=== PATIENT | female | born 1940 | race Caucasian/White ===

== ENCOUNTER 2021-10-12 10:46 | Emergency (ER) | payer MEDICARE ==
[~2021-10-12] VITALS: Ht 167.6 cm; Wt 72.6 kg
[2021-10-12] MEDS ORDERED: ATOR20TA PO (11:08)
[2021-10-12] MEDS ORDERED: LISI10TA29 PO (11:08)
[2021-10-12] MEDS ORDERED: MULT-1168 PO (11:14)
[2021-10-12] MEDS ORDERED: LORAZEPAM 2 MG/1 ML VIAL IV ONE (11:15)
[2021-10-12] MEDS ORDERED: BIFI10.5 PO (11:15)
[2021-10-12] MEDS ORDERED: IV NORMAL SALINE 250 ML BAG IV ONE (11:15)
[2021-10-12] MEDS ORDERED: ATEN25TA PO (11:16)
--- NOTE | 2021-10-12 11:17 | NUR ---
PT IS IN ROOM #2B. DR GABRIEL EVALUATED THE PT.
[2021-10-12] MEDS ORDERED: LORAZEPAM 2 MG/1 ML VIAL ONE (11:42)
[2021-10-12 12:14] LABS: HEMATOCRIT 43.1 % (31.2-41.9); MEAN CORPUSCULAR HEMOGLOBIN 30.8 uug (24.7-32.8); MEAN CORPUSCULAR VOLUME 90.7 fL (75.5-95.3); PLATELET COUNT (AUTO) 178 K/uL (179-408)
[2021-10-12 12:21] LABS: CARBON DIOXIDE 27 mmol/L (21-32); CHLORIDE 105 mmol/L (98-107); CREATININE 0.8 mg/dL (0.6-1.3); GLUCOSE 110 mg/dL (74-106); POTASSIUM 4.3 mmol/L (3.5-5.1); UREA NITROGEN, BLOOD 25 mg/dL (7-18)
[2021-10-12 12:34] LABS: ALANINE AMINOTRANSFERASE 14 U/L (14-59); ALKALINE PHOSPHATASE 63 U/L (50-136); ASPARTATE AMINOTRANSFERASE 9 U/L (15-37); BILIRUBIN,DIRECT 0.1 mg/dL (0.0-0.2); BILIRUBIN,TOTAL 0.4 mg/dL (0.2-1.0); TOTAL PROTEIN, SERUM 6.5 g/dL (6.4-8.2)
[2021-10-12] MEDS ORDERED: LORA0.5T48 PO (14:05)
--- NOTE | 2021-10-12 14:38 | NUR ---
PT WAS D/C'd TO HOME. D/C INSTRUCTIONS GIVEN TO THE PT BY DR GABRIEL.
[2021-10-12 14:39] VITALS: BP 146/78
== END 2021-10-12 14:40 | disposition home or self-care (01) ==
LOC: ER 10:46
DX: F41.0 Panic disorder [episodic paroxysmal anxiety] (principal); R53.1 Weakness; Z82.49 Family history of ischemic heart disease and other diseases of the circulatory system; E03.9 Hypothyroidism, unspecified; R03.0 Elevated blood-pressure reading, without diagnosis of hypertension; Z88.2 Allergy status to sulfonamides; Z79.899 Other long term (current) drug therapy
CPT/HCPCS: 36415; 70450; 71045; 80048; 80076; 83880; 84443; 84484; 85025; 93005; 96361; 96374; 99285; J2060; A4663; J7040

== ENCOUNTER 2023-07-22 11:02 | Inpatient (IN) | payer MEDICARE, BC ==
[~2023-07-22] VITALS: Ht 167.6 cm; Wt 80.3 kg
[~2023-07-22 11:02] MED LIST: ATEN25TA PO; ATOR20TA PO; BIFI10.5 PO; LISI10TA29 PO; LORA0.5T48 PO; MULT-1168 PO
[2023-07-22] MEDS ORDERED: METO-356 PO (11:33)
[2023-07-22] MEDS ORDERED: SERT100T PO (11:33)
[2023-07-22] MEDS ORDERED: LEVO100T PO (11:33)
[2023-07-22] MEDS ORDERED: GABA-532 PO (11:33)
[2023-07-22 11:52] LABS: BASOPHILS # (AUTO) 0.3 K/UL (0.0-0.2); BASOPHILS % (AUTO) 4.1 % (0.0-2.0); EOSINOPHILS # (AUTO) 0.1 K/uL (0.0-0.7); EOSINOPHILS % (AUTO) 0.9 % (0.0-7.0); HEMATOCRIT 44.8 % (31.2-41.9); HEMOGLOBIN 14.8 g/dL (10.9-14.3); LYMPHOCYTES # (AUTO) 0.7 K/uL (0.8-4.8); LYMPHOCYTES % (AUTO) 9.6 % (20.5-51.5); MEAN CORPUSCULAR HEMOGLOBIN 30.4 uug (24.7-32.8); MEAN CORPUSCULAR HGB CONC 33 g/dL (32.3-35.6); MEAN CORPUSCULAR VOLUME 92.1 fL (75.5-95.3); MONOCYTES # (AUTO) 0.5 K/uL (0.1-1.30); MONOCYTES % (AUTO) 6.3 % (0.0-11.0); NEUTROPHILS # (AUTO) 5.9 K/uL (1.8-8.9); NEUTROPHILS % (AUTO) 79.1 % (38.5-71.5); PLATELET COUNT (AUTO) 169 K/uL (179-408); RED BLOOD CELL COUNT(AUTO) 4.87 MIL/uL (3.63-4.92); RED CELL DISTRIBUTION WIDTH 13.9 % (12.3-17.7); WHITE BLOOD COUNT (AUTO) 7.4 K/uL (3.8-11.8)
[2023-07-22 12:43] LABS: ALANINE AMINOTRANSFERASE 17 U/L (14-59); ALBUMIN 3.5 g/dL (3.4-5.0); ALKALINE PHOSPHATASE 73 U/L (50-136); ASPARTATE AMINOTRANSFERASE 10 U/L (15-37); BILIRUBIN,DIRECT 0.1 mg/dL (0.0-0.2); BILIRUBIN,TOTAL 0.4 mg/dL (0.2-1.0); CALCIUM 9.1 mg/dL (8.5-10.1); CARBON DIOXIDE 23 mmol/L (21-32); CHLORIDE 104 mmol/L (98-107); CREATININE 0.8 mg/dL (0.6-1.3); GLUCOSE 104 mg/dL (74-106); MAGNESIUM 2.2 mg/dL (1.8-2.4); SODIUM SERUM 138 mmol/L (136-145); UREA NITROGEN, BLOOD 22 mg/dL (7-18)
[2023-07-22 13:16] LABS: *BILIRUBIN,URIN NEGATIVE (NEGATIVE); *BLOOD, URINE NEGATIVE (NEGATIVE); *CLARITY,URINE CLEAR (CLEAR); *COLOR,URINE YELLOW (YELLOW); *KETONES,URINE NEGATIVE (NEGATIVE); *PROTEIN,URINE NEGATIVE (NEGATIVE); *UROBILINOGEN,URINE 0.2 E.U./dl (NORMAL); LEUKOCYTE ESTERASE ,URINE NEGATIVE (NEGATIVE); NITRITE, URINE NEGATIVE (NEGATIVE); PH,URINE 7.5 (5.0-8.0); UGLUCOSE NEGATIVE (NEGATIVE)
[2023-07-22 13:18] LABS: DIFFERENTIAL COMMENT 1
[2023-07-22 14:25] LABS: THYROID STIMULATING HORMONE 4.003 mIU/mL (0.358-3.740)
[2023-07-22] MEDS ORDERED: LORAZEPAM 1 MG TABLET ONE (14:25)
[2023-07-22] MEDS ORDERED: diphenhydrAMINE 25 MG CAP PO ONE (14:25)
[2023-07-22] MEDS: LORAZEPAM 0.5 MG TABLET PO ONE (14:27)
[2023-07-22] MEDS: diphenhydrAMINE 25 MG CAP PO ONE (14:27)
[2023-07-22] MEDS: CYANOCOBALAMIN 1000 MCG/ML VIAL IM ONE (17:00)
[2023-07-22] MEDS ORDERED: CYANOCOBALAMIN 1000 MCG/ML VIAL ONE (17:45)
[2023-07-22] MEDS ORDERED: MAGNESIUM HYDROXIDE 30 ML LIQUID UDC PO PRN (18:30)
[2023-07-22] MEDS: BLOOD SUGAR DIAGNOSTIC 1 EACH STRIP VI ONE (18:30)
[2023-07-22] MEDS ORDERED: MAG HYDROX/AL HYDROX/SIMETH 30 ML LIQUID UDC PO PRN (18:30)
[2023-07-22 18:41] VITALS: BP 158/82; TEMP 98.7; O2SAT 99
[2023-07-22] MEDS: LORAZEPAM 1 MG TABLET PO PRN (21:17)
[2023-07-22] MEDS: LISINOPRIL 10 MG TABLET PO SCH (23:15)
[2023-07-22] MEDS: GABAPENTIN 100 MG CAPSULE PO SCH (23:35)
[2023-07-22] MEDS: METOPROLOL SUCCINATE XL 25 MG TAB.SR.24H PO SCH (23:36)
[2023-07-23] MEDS: LEVOTHYROXINE SODIUM 100 MCG TABLET PO SCH (06:27)
[2023-07-23 07:55] VITALS: BP 119/62; TEMP 98; O2SAT 98
[2023-07-23 08:15] LABS: ALANINE AMINOTRANSFERASE 19 U/L (14-59); ALBUMIN 2.9 g/dL (3.4-5.0); ALKALINE PHOSPHATASE 63 U/L (50-136); ASPARTATE AMINOTRANSFERASE 8 U/L (15-37); BILIRUBIN,TOTAL 0.5 mg/dL (0.2-1.0); CALCIUM 8.5 mg/dL (8.5-10.1); CARBON DIOXIDE 28 mmol/L (21-32); CHLORIDE 107 mmol/L (98-107); CREATININE 0.8 mg/dL (0.6-1.3); GLUCOSE 98 mg/dL (74-106); POTASSIUM 4.3 mmol/L (3.5-5.1); SODIUM SERUM 141 mmol/L (136-145); TOTAL PROTEIN, SERUM 6.1 g/dL (6.4-8.2); UREA NITROGEN, BLOOD 15 mg/dL (7-18)
[2023-07-23] MEDS: MULTIVIT, IRON, MIN NO. 8, FA TABLET PO SCH (08:33)
[2023-07-23] MEDS: PAROXETINE HCL 10 MG TABLET PO SCH (11:01)
[2023-07-23] MEDS: GABAPENTIN 100 MG CAPSULE PO SCH (12:36)
[2023-07-23 16:05] VITALS: BP 103/69; TEMP 98.1; O2SAT 98
[2023-07-23 20:00] VITALS: BP 110/53; TEMP 97.7; O2SAT 96
[2023-07-23] MEDS ORDERED: GABAPENTIN 100 MG CAPSULE PO SCH (21:00)
[2023-07-23] MEDS: ZOLPIDEM 5 MG TABLET PO PRN (21:05)
[2023-07-23] MEDS: ATORVASTATIN 20 MG TABLET PO SCH (21:05)
[2023-07-24 07:51] VITALS: BP 124/63; TEMP 97.5; O2SAT 98
[2023-07-24 16:03] VITALS: BP 143/81; TEMP 98; O2SAT 99
[2023-07-24 20:00] VITALS: BP 93/54; TEMP 98; O2SAT 97
[2023-07-25 07:51] VITALS: BP 142/68; TEMP 98.2; O2SAT 98
[2023-07-25] MEDS: PAROXETINE HCL 10 MG TABLET PO ONE (09:51)
[2023-07-25 15:15] VITALS: BP 107/63; TEMP 97.8; O2SAT 98
[2023-07-25 20:00] VITALS: BP 112/69; TEMP 98; O2SAT 94
[2023-07-26 07:57] VITALS: BP_SYST 150; BP_SYST 182; BP_DIAS 84; BP_DIAS 99; TEMP 98; O2SAT 98
[2023-07-26] MEDS: PAROXETINE HCL 20 MG TABLET PO SCH (09:08)
[2023-07-26 15:08] VITALS: BP 99/61; TEMP 98; O2SAT 98
[2023-07-26 20:02] VITALS: BP 136/78; TEMP 98.1; O2SAT 98
[2023-07-27] MEDS ORDERED: LORAZEPAM 1 MG TABLET PO PRN (08:15)
[2023-07-27 08:19] VITALS: BP 153/84; TEMP 98; O2SAT 98
[2023-07-27] MEDS: LORAZEPAM 0.5 MG TABLET PO PRN (10:36)
[2023-07-27 15:34] VITALS: BP 102/57; TEMP 97.6; O2SAT 98
[2023-07-27 19:57] VITALS: BP 104/56; TEMP 97.7; O2SAT 96
[2023-07-27] MEDS: MELATONIN 3 MG TABLET PO SCH (20:09)
[2023-07-28 08:44] VITALS: BP 119/62; TEMP 98.2; O2SAT 99
[2023-07-28] MEDS: ENSURE ENLIVE (VAN) 240 ML LIQUID PO SCH (08:54)
[2023-07-28] MEDS: LORAZEPAM 0.5 MG TABLET PO PRN (14:28)
[2023-07-28 15:33] VITALS: BP 119/62; TEMP 98.2; O2SAT 99
[2023-07-28] MEDS: LORAZEPAM 2 MG/1 ML VIAL IM ONE (17:06)
[2023-07-28 20:05] VITALS: BP 100/52; TEMP 97.9; O2SAT 96
[2023-07-29 07:43] VITALS: BP 138/68; TEMP 98.1; O2SAT 98
[2023-07-29 16:21] VITALS: BP 117/69; TEMP 98; O2SAT 98
[2023-07-29] MEDS: LORAZEPAM 1 MG TABLET PO PRN (19:58)
[2023-07-29 19:59] VITALS: BP 103/55; TEMP 97.5; O2SAT 98
[2023-07-30 07:35] VITALS: BP 154/67; TEMP 97.6; O2SAT 98
[2023-07-30] MEDS: ACETAMINOPHEN 325 MG TABLET PO PRN (10:06)
[2023-07-30 16:12] VITALS: BP 125/67; TEMP 98; O2SAT 98
[2023-07-30 19:44] VITALS: BP 100/55; TEMP 98.1; O2SAT 96
[2023-07-31 07:47] VITALS: BP 157/70; TEMP 98.1; O2SAT 97
[2023-07-31 08:45] LABS: BASOPHILS # (AUTO) 0.1 K/UL (0.0-0.2); EOSINOPHILS # (AUTO) 0.1 K/uL (0.0-0.7); EOSINOPHILS % (AUTO) 1.8 % (0.0-7.0); HEMATOCRIT 41.5 % (31.2-41.9); HEMOGLOBIN 13.9 g/dL (10.9-14.3); LYMPHOCYTES # (AUTO) 0.9 K/uL (0.8-4.8); LYMPHOCYTES % (AUTO) 12.7 % (20.5-51.5); MEAN CORPUSCULAR HEMOGLOBIN 30.4 uug (24.7-32.8); MEAN CORPUSCULAR HGB CONC 33 g/dL (32.3-35.6); MONOCYTES # (AUTO) 0.6 K/uL (0.1-1.30); MONOCYTES % (AUTO) 8.6 % (0.0-11.0); NEUTROPHILS # (AUTO) 5.5 K/uL (1.8-8.9); NEUTROPHILS % (AUTO) 75.9 % (38.5-71.5); PLATELET COUNT (AUTO) 155 K/uL (179-408); RED BLOOD CELL COUNT(AUTO) 4.56 MIL/uL (3.63-4.92); RED CELL DISTRIBUTION WIDTH 13.3 % (12.3-17.7); WHITE BLOOD COUNT (AUTO) 7.2 K/uL (3.8-11.8)
[2023-07-31 08:47] LABS: DIFFERENTIAL COMMENT 1
[2023-07-31] MEDS ORDERED: LORAZEPAM 1 MG TABLET PO PRN (09:15)
[2023-07-31 09:24] LABS: CALCIUM 8.6 mg/dL (8.5-10.1); CARBON DIOXIDE 28 mmol/L (21-32); CHLORIDE 106 mmol/L (98-107); CREATININE 0.8 mg/dL (0.6-1.3); GLUCOSE 98 mg/dL (74-106); PHOSPHOROUS 3.6 mg/dL (2.5-4.9); SODIUM SERUM 140 mmol/L (136-145); UREA NITROGEN, BLOOD 17 mg/dL (7-18)
[2023-07-31 09:30] LABS: POTASSIUM 4.3 mmol/L (3.5-5.1)
[2023-07-31 11:30] VITALS: BP 86/51; O2SAT 98
[2023-07-31 11:40] VITALS: BP 127/61; O2SAT 98
[2023-07-31 11:57] VITALS: BP 120/68; O2SAT 98
[2023-07-31] MEDS: HYDROXYZINE PAMOATE 25 MG CAPSULE PO PRN (11:59)
[2023-07-31] MEDS: LORAZEPAM 0.5 MG TABLET PO PRN (14:19)
[2023-07-31 16:10] VITALS: BP 111/59; TEMP 98; O2SAT 97
[2023-07-31 20:00] VITALS: BP 146/86; TEMP 98.1; O2SAT 97
[2023-08-01 09:36] VITALS: BP 166/80; TEMP 97.8; O2SAT 98
[2023-08-01 15:15] VITALS: BP 123/70; TEMP 97.8; O2SAT 98
[2023-08-01 19:58] VITALS: BP 136/64; TEMP 97.8; O2SAT 96
[2023-08-02 09:21] VITALS: BP 132/72; TEMP 98.2; O2SAT 98
[2023-08-02 15:35] VITALS: BP 114/65; TEMP 98.2; O2SAT 94
[2023-08-02 20:02] VITALS: BP 130/66; TEMP 97.9; O2SAT 96
[2023-08-03 07:55] VITALS: BP 146/73; TEMP 98.2; O2SAT 97
[2023-08-03] MEDS: VENLAFAXINE XR 37.5 MG CAP.SR.24H PO SCH (12:57)
[2023-08-03 15:33] VITALS: BP 119/72; TEMP 97.8; O2SAT 97
[2023-08-03 20:00] VITALS: BP 142/65; TEMP 98; O2SAT 97
[2023-08-04 08:11] VITALS: BP 105/73; TEMP 98.2; O2SAT 98
[2023-08-04 15:18] VITALS: BP 131/72; TEMP 98; O2SAT 98
[2023-08-04] MEDS: ENSURE ENLIVE (VAN) 240 ML LIQUID PO SCH (16:32)
[2023-08-04 20:00] VITALS: BP 136/68; TEMP 97.9; O2SAT 97
[2023-08-04] MEDS: MELATONIN 3 MG TABLET PO SCH (20:47)
[2023-08-04] MEDS: diphenhydrAMINE 50 MG CAPSULE PO PRN (21:09)
[2023-08-05 08:15] VITALS: BP 164/83; TEMP 98; O2SAT 98
[2023-08-05 16:14] VITALS: BP 139/84; TEMP 98; O2SAT 98
[2023-08-05 20:00] VITALS: BP 111/57; TEMP 98.4; O2SAT 96
[2023-08-06 08:11] VITALS: BP 147/73; TEMP 98.3; O2SAT 98
[2023-08-06] MEDS: HYDROXYZINE PAMOATE 25 MG CAPSULE PO PRN (13:43)
[2023-08-06 16:48] VITALS: BP 138/73; TEMP 98; O2SAT 97
[2023-08-06 20:00] VITALS: BP 103/50; TEMP 98; O2SAT 98
[2023-08-07 07:48] VITALS: BP 151/66; TEMP 98.2; O2SAT 98
[2023-08-07 08:22] VITALS: BP 151/66
== END 2023-08-07 13:00 | disposition home or self-care (01) | DRG 880 ==
LOC: ER 11:05 → GPS 17:24
PROVIDERS: ADMIT Psychiatry & Neurology Psychiatry; ATTEND Nurse Practitioner Acute Care
DX: F41.0 Panic disorder [episodic paroxysmal anxiety] (principal); I10 Essential (primary) hypertension; F40.10 Social phobia, unspecified; F41.1 Generalized anxiety disorder; F32.9 Major depressive disorder, single episode, unspecified; Z88.2 Allergy status to sulfonamides; E03.9 Hypothyroidism, unspecified; Z79.890 Hormone replacement therapy
CPT/HCPCS: 36415; 70450; 83735; 84100; 84443; 85025; J2060; J3420; Q0163